=== PATIENT | female | born 1985 | race Caucasian/White ===

== ENCOUNTER 2022-08-10 12:19 | Outpatient (CLI) | payer OTHER, SELFPAY ==
--- NOTE | ~2022-08-10 | MR_ITS ---
EXAMINATION: MR knee LT wo con DATE: 08/10/2022 13:27 INDICATION: Left knee pain. TECHNIQUE: Magnetic resonance imaging (MRI) of the left knee was performed without intravenous contra st. Sequences included axial PD-weighted FS FSE, coronal PD-weighted FSE and PD-weighted FS FSE, sagi ttal PD-weighted FSE, and sagittal T2-weighted FS FSE. COMPARISON: Left knee radiographs 05/11/2017 FINDINGS: Medial compartment: Medial meniscus is normal. Medial compartment cartilage is normal. Lateral compartment: Lateral meniscus is normal. Lateral compartment cartilage is normal. Patellofemoral compartment: Patellar cartilage is normal. Trochlear cartilage is normal. Ligaments and tendons: Anterior cruciate ligament demonstrates increased signal intensity distally with some disorganized fi bers, consistent with partial tear. There is a partial tear of posterior cruciate ligament characteri zed by thickening and increased signal intensity. Fluid: There is a small knee joint effusion. There is a small Schultz's cyst. Osseous/other: There is moderate prepatellar and superficial infrapatellar bursitis. IMPRESSION: 1. Partial tears of anterior and posterior cruciate ligaments. 2. Small knee joint effusion. 3. Small Schultz's cyst. Reviewed, dictated and finalized at location A.
== END 2022-08-10 12:20 | disposition home or self-care (01) ==
PROVIDERS: PCP Family Medicine
DX: M25.461 Effusion, right knee (principal); M25.462 Effusion, left knee; M71.22 Synovial cyst of popliteal space [Baker], left knee; S83.512A Sprain of anterior cruciate ligament of left knee, initial encounter; S83.522A Sprain of posterior cruciate ligament of left knee, initial encounter; X58.XXXA Exposure to other specified factors, initial encounter
CPT/HCPCS: 73721